=== PATIENT | male | born 1935 | race African-American/Black ===

== ENCOUNTER 2020-10-08 12:40 | Emergency (ER) | payer MEDICARE, OTHER ==
[~2020-10-08] VITALS: Ht 180.3 cm; Wt 100.0 kg
[~2020-10-08 12:40] MED LIST: METFORMIN
[2020-10-08 12:46] VITALS: BP 160/69
[2020-10-08] MEDS ORDERED: ACETAMINOPHEN 500MG TABLET PO ONE (14:00)
== END 2020-10-08 14:05 | disposition home or self-care (01) ==
LOC: ER 12:40
DX: K08.89 Other specified disorders of teeth and supporting structures (principal); E11.9 Type 2 diabetes mellitus without complications; Z91.041 Radiographic dye allergy status
CPT/HCPCS: 99282

== ENCOUNTER 2022-04-22 17:44 | Emergency (ER) | payer MEDICARE, OTHER ==
[~2022-04-22] VITALS: Ht 182.9 cm; Wt 95.0 kg
[2022-04-22 17:54] VITALS: BP 129/76
== END 2022-04-22 17:50 | disposition home or self-care (01) ==
LOC: ER 17:44
DX: R10.32 Left lower quadrant pain (principal); I10 Essential (primary) hypertension; E11.9 Type 2 diabetes mellitus without complications; N40.0 Benign prostatic hyperplasia without lower urinary tract symptoms
CPT/HCPCS: 99281